=== PATIENT | female | born 1935 | race Caucasian/White ===

== ENCOUNTER → 2016-10-05 09:21 | Outpatient (CLI) | payer MEDICARE, OTHER ==
[2016-10-05 10:06] LABS: BASOPHILS 0.2 % (0.0-2.0); EOSINOPHILS 1.4 % (0-7); HEMATOCRIT 39.2 % (36.0-48.0); IMMATURE GRANULOCYTES 0.1 % (0-5); LYMPHOCYTES 16.7 % (15-50); MCHC 33.2 g/dL (31.0-37.0); MCV 90.3 fL (80.0-100.0); MEAN PLATELET VOLUME 10.5 fL (7.4-10.4); MONOCYTES 4.9 % (2-11); NEUTROPHILS 76.7 % (40-80); PLATELET COUNT 189 10x3/uL (130-400); RBC 4.34 10x6/uL (4.00-5.40); WBC 9.5 10x3/uL (4.8-10.8)
[2016-10-05 10:17] LABS: APPEARANCE CLEAR (CLEAR); BILIRUBIN NEGATIVE (NEGATIVE); COLOR YELLOW (YELLOW); GLUCOSE NEGATIVE (NEGATIVE); KETONE NEGATIVE (NEGATIVE); LEUKOCYTE ESTERASE 1+ (NEGATIVE); NITRITE NEGATIVE (NEGATIVE); PROTEIN TRACE mg/dL (NEGATIVE); SPECIFIC GRAVITY 1.005 (1.005-1.020); UROBILINOGEN NORMAL (NORMAL)
[2016-10-05 10:18] LABS: BACTERIA FEW /hpf (NONE SEEN); EPITHELIAL CELLS 0-5 /hpf (0-5); RED CELLS - URINE 0-5 /hpf (0-5); WHITE CELLS - URINE 0-5 /hpf (0-5)
[2016-10-05 10:47] LABS: ALBUMIN 3.9 g/dL (3.4-5.0); ANION GAP 10.5 mmol/L (8-16); BILIRUBIN - TOTAL 0.9 mg/dL (0.2-1.3); CALCIUM 9.7 mg/dL (8.5-10.1); CARBON DIOXIDE 28.2 mmol/L (21.0-32.0); LDL-HDL RATIO 0.9 ratio (1.5-3.5); POTASSIUM - SERUM 3.7 mmol/L (3.5-5.1); PROTEIN - SERUM 7.2 g/dL (6.4-8.2); THYROID STIMULATING HORMONE 3.7 uIU/mL (0.36-3.74)
== END | disposition home or self-care (01) ==
LOC: D.LAB 09:21
PROVIDERS: Family Medicine
DX: I48.2 Chronic atrial fibrillation (principal); E03.9 Hypothyroidism, unspecified; M85.80 Other specified disorders of bone density and structure, unspecified site; I10 Essential (primary) hypertension

== ENCOUNTER 2017-01-09 13:03 | Emergency (ER) | payer MEDICARE, OTHER | END 2017-01-09 15:30 | disposition home or self-care (01) | LOC: D.ER 13:03 | DX: S39.012A Strain of muscle, fascia and tendon of lower back, initial encounter (principal); W10.9XXA Fall (on) (from) unspecified stairs and steps, initial encounter; Y93.89 Activity, other specified; Y92.89 Other specified places as the place of occurrence of the external cause; I48.91 Unspecified atrial fibrillation; I25.10 Atherosclerotic heart disease of native coronary artery without angina pectoris; I10 Essential (primary) hypertension; E03.9 Hypothyroidism, unspecified; C44.90 Unspecified malignant neoplasm of skin, unspecified ==

== ENCOUNTER → 2017-01-18 13:36 | Outpatient (CLI) | payer MEDICARE, OTHER | END | disposition home or self-care (01) | LOC: D.MRI 13:36 | DX: M48.56XD Collapsed vertebra, not elsewhere classified, lumbar region, subsequent encounter for fracture with routine healing (principal) ==

== ENCOUNTER → 2017-10-16 09:43 | Outpatient (CLI) | payer MEDICARE, OTHER ==
[2017-10-16 10:16] LABS: BASOPHILS 0.4 % (0-2); EOSINOPHILS 2.5 % (0-7); HEMATOCRIT 31.3 % (36.0-48.0); HEMOGLOBIN 10.1 g/dL (12-16); IMMATURE GRANULOCYTES 0.3 % (0-5); LYMPHOCYTES 11.5 % (15-50); MCH 30.2 pg (26.0-34.0); MCHC 32.3 g/dL (31.0-37.0); MCV 93.7 fL (80.0-100.0); MEAN PLATELET VOLUME 9.4 fL (7.4-10.4); MONOCYTES 6.8 % (2-11); NEUTROPHILS 78.5 % (40-80); RBC 3.34 10x6/uL (4.00-5.40); RDW 15.9 % (11.5-14.5); WBC 10.1 10x3/uL (4.8-10.8)
[2017-10-16 10:19] LABS: PLATELET COUNT 300 10x3/uL (130-400)
[2017-10-16 10:42] LABS: ALBUMIN 3.2 g/dL (3.4-5.0); BILIRUBIN - TOTAL 0.65 mg/dL (0.2-1.3); CALCIUM 9.1 mg/dL (8.5-10.1); CARBON DIOXIDE 26.5 mmol/L (21.0-32.0); CHOL - HDL RATIO 1.7 ratio (2.3-4.1); CREATININE - SERUM 0.9 mg/dL (0.6-1.3); LDL-HDL RATIO 0.6 ratio (1.5-3.5); POTASSIUM - SERUM 3.5 mmol/L (3.5-5.1); PROTEIN - SERUM 6.9 g/dL (6.4-8.2); THYROID STIMULATING HORMONE 5.82 uIU/mL (0.36-3.74)
== END | disposition home or self-care (01) ==
LOC: D.LAB 08:00
PROVIDERS: Family Medicine
DX: I10 Essential (primary) hypertension (principal); E03.9 Hypothyroidism, unspecified; I48.2 Chronic atrial fibrillation; M85.80 Other specified disorders of bone density and structure, unspecified site

== ENCOUNTER 2017-11-17 21:50 | Inpatient (IN) | payer MEDICARE, OTHER ==
[~2017-11-17] VITALS: Ht 152.4 cm; Wt 45.4 kg
--- NOTE | ~2017-11-17 | EC ---
PATIENT:ARINA HADLEY DATE OF SERVICE: 11/18/17 SEX: F MEDICAL RECORD: [id number] DATE OF : 39 LOCATION:[facility] AGE OF PATIENT: 82 ADMISSION DATE: 11/18/17 REFERRING PHYSICIAN: INTERPRETING PHYSICIAN: CHRISTY ADAM MD ECHOCARDIOGRAM REPORT ECHO CHARGES 4 ECHO COMPLETE DATE: CLINICAL DIAGNOSIS: ASSESS EF HX OF AFIB/HTN ECHOCARDIOGRAPHIC MEASUREMENTS (adult normal given) AC root (d.<3.7cm) 2.9 cm LV Septum d (<1.2 cm> 1.3 cm Valve Excursion 1.8 cm LV Septum (systole) 1.6 cm Left Atria (s.<4.0cm> 3.9 cm LVPW d(<1.2cm) 1.2 cm RV (d.<2.3cm) 3.9 cm LVPW (sytole) 1.5 cm LV diastole(<5.6CM) 4.1 cm MV E-F(>70mm/sec) cm LV systole 2.7 cm LVOT Diameter 1.3 cm MV exc.(>10mm) 1.6 cm Est.ejection fraction (50-75%) % DOPPLER: LVIT cm/sec A 86.0 cm/sec E 107 cm/sec LA cm/sec RVSP 51 mmHg LVOT 93 cm/sec AOP1/2T 947 m/s Asc. Ao 163 cm/sec RVOT 86 cm/sec RA cm/sec PA 126 cm/sec AV Gradient Peak 10.61mmHg AV Mean 5.74 mmHg AV Area 1.7 cm MV Gradient Peak 6.99 mmHg MV Mean 1.72 mmHg MV Area cm COMMENTS: Vfx Artist: Rita MCDOWELL Transmission Supervisor: 1 Dr. Adam TAPE# PACS Pericardial Effusion N DATE OF SERVICE: 11/18/2017 FINDINGS: 1. Left ventricular chamber size is within normal limits. Left ventricular systolic function is normal. Overall ejection fraction estimated at 55%. 2. Left atrium is upper limits of normal at 3.9 cm. Right atrium and right ventricular chamber sizes are mildly dilated. 3. Valvular structures have normal structure and motion. 4. Doppler interrogation reveals mild aortic insufficiency, mild mitral regurgitation, severe tricuspid regurgitation. No other valvular insufficiency ECHOCARDIOGRAM REPORT [id number] ARINA HADLEY or stenosis; however, pulmonary systolic pressure is elevated, estimated at 52 mmHg. 5. No evidence of pericardial effusion or left ventricular thrombus. TRANSINT:[id number] Voice Confirmation ID: [id number] DOCUMENT ID: [id number] 11/23/2017 Edited to correct date of service, dmm. CHRISTY ADAM MD at 1140 CC: [id number] DICTATION DATE: 11/19/17 1217 EVIDENCE TECHNICIAN: 11/19/17 1656 DIS IN 11/22/17 [id number] [place] [address]
[2017-11-17 23:41] LABS: BASOPHILS 0.3 % (0-2); EOSINOPHILS 1.2 % (0-7); HEMATOCRIT 28.7 % (36.0-48.0); HEMOGLOBIN 9.6 g/dL (12-16); IMMATURE GRANULOCYTES 0.2 % (0-5); LYMPHOCYTES 12.2 % (15-50); MCH 29.5 pg (26.0-34.0); MCHC 33.4 g/dL (31.0-37.0); MCV 88.3 fL (80.0-100.0); MONOCYTES 7.9 % (2-11); NEUTROPHILS 78.2 % (40-80); RBC 3.25 10x6/uL (4.00-5.40); RDW 13.4 % (11.5-14.5)
[2017-11-17 23:54] LABS: PLATELET COUNT 423 10x3/uL (130-400)
[2017-11-18 00:06] LABS: ALBUMIN 2.5 g/dL (3.4-5.0); ALKALINE PHOSPHATASE 163 U/L (46-116); ALT (SGPT) 48 U/L (10-68); BILIRUBIN - TOTAL 0.36 mg/dL (0.2-1.3); CALC OSMOLALITY 264 mosm/kg (275-300); CALCIUM 9.3 mg/dL (8.5-10.1); CHLORIDE - SERUM 93 mmol/L (98-107); GLUCOSE 104 mg/dL (74-106); POTASSIUM - SERUM 3.6 mmol/L (3.5-5.1); PROTEIN - SERUM 6.7 g/dL (6.4-8.2); SODIUM 130 mmol/L (136-145); UREA NITROGEN 25 mg/dL (7-18); eGFR NON AFRICAN AMERICAN 56 mL/min (90-120)
[2017-11-18 00:20] LABS: CHOL - HDL RATIO 2.2 ratio (2.3-4.1); CHOLESTEROL, TOTAL 141 mg/dL (0-200); CKMB 0.7 U/L (0.0-3.6); CREATINE KINASE 32 UL (21-215); HDL CHOLESTEROL 63 mg/dL (32-96); LDL CHOLESTEROL 69 mg/dL (0-100); LDL-HDL RATIO 1.1 ratio (1.5-3.5); TRIGLYCERIDE 45 mg/dL (30-200); TROPONIN-I < 0.017 ng/mL (0.000-0.060)
[2017-11-18 12:41] LABS: CKMB 0.6 U/L (0.0-3.6); CREATINE KINASE 33 UL (21-215); TROPONIN-I < 0.017 ng/mL (0.000-0.060)
[2017-11-18] MEDS ORDERED: LISINOPRIL-HCTZ1 T13 PO (16:25)
[2017-11-18] MEDS ORDERED: FUROSEMIDE20 MG PO (16:25)
[2017-11-18] MEDS ORDERED: LEVOTHYROXINE50 MCG PO (16:26)
[2017-11-18] MEDS ORDERED: METOPROLOL TART25 MG PO (16:27)
[2017-11-18] MEDS ORDERED: CLARITIN 10 MG10 MG PO (16:28)
[2017-11-18] MEDS ORDERED: TOPROL XL25 MG PO (17:00)
[2017-11-18] MEDS ORDERED: ZIPSOR25 MG (17:01)
[2017-11-18] MEDS ORDERED: BAYER CHEWABLE81 MG PO (17:02)
[2017-11-18] MEDS ORDERED: DICLOFENAC SODI50 MG PO (17:02)
[2017-11-18] MEDS ORDERED: MAGNESIUM OXID250 MG PO (17:03)
[2017-11-18] MEDS ORDERED: OMEGA-3100 MG PO (17:03)
[2017-11-18] MEDS ORDERED: VITAMIN D3400 UNI1 PO (17:04)
[2017-11-18 17:38] VITALS: BP 163/67; BMI 19.5
[2017-11-18 18:13] LABS: CKMB 0.7 U/L (0.0-3.6); CREATINE KINASE 33 UL (21-215); TROPONIN-I < 0.017 ng/mL (0.000-0.060)
[2017-11-18 22:24] VITALS: BP 170/72
[2017-11-18 23:55] LABS: CKMB 0.4 U/L (0.0-3.6); CREATINE KINASE 35 UL (21-215); TROPONIN-I < 0.017 ng/mL (0.000-0.060)
[2017-11-19 02:24] VITALS: BP 178/78
[2017-11-19 05:25] VITALS: BP 146/53
[2017-11-19 06:01] LABS: BASOPHILS 0.2 % (0-2); EOSINOPHILS 0.9 % (0-7); HEMATOCRIT 29.7 % (36.0-48.0); HEMOGLOBIN 9.7 g/dL (12-16); IMMATURE GRANULOCYTES 0.4 % (0-5); LYMPHOCYTES 10.6 % (15-50); MCH 28.8 pg (26.0-34.0); MCHC 32.7 g/dL (31.0-37.0); MCV 88.1 fL (80.0-100.0); MONOCYTES 8.9 % (2-11); PLATELET COUNT 441 10x3/uL (130-400); RBC 3.37 10x6/uL (4.00-5.40); RDW 13.3 % (11.5-14.5)
[2017-11-19 06:13] LABS: ANION GAP 13.6 mmol/L (8-16); CALCIUM 8.8 mg/dL (8.5-10.1); CARBON DIOXIDE 22.8 mmol/L (21.0-32.0); CREATININE - SERUM 0.9 mg/dL (0.6-1.3); POTASSIUM - SERUM 3.4 mmol/L (3.5-5.1)
[2017-11-19 08:00] VITALS: BP 157/54
[2017-11-19 11:30] VITALS: BP 141/59
[2017-11-19 15:30] VITALS: BP 128/66
[2017-11-19 19:08] LABS: EOS BF 1 %; MACROPHAGES BF 14 %; MESOTHELIALS BF 16 %; NEUT - BF 52 %
[2017-11-19 21:51] VITALS: BP 126/72
[2017-11-20 01:33] VITALS: BP 100/58
[2017-11-20 05:05] VITALS: BP 120/72
[2017-11-20 06:02] LABS: BASOPHILS 0.2 % (0-2); EOSINOPHILS 1.9 % (0-7); HEMATOCRIT 30.1 % (36.0-48.0); HEMOGLOBIN 9.8 g/dL (12-16); IMMATURE GRANULOCYTES 0.2 % (0-5); LYMPHOCYTES 14.1 % (15-50); MCH 28.8 pg (26.0-34.0); MCHC 32.6 g/dL (31.0-37.0); MCV 88.5 fL (80.0-100.0); MEAN PLATELET VOLUME 8.8 fL (7.4-10.4); NEUTROPHILS 75.6 % (40-80); PLATELET COUNT 381 10x3/uL (130-400); RDW 13.3 % (11.5-14.5); WBC 10.2 10x3/uL (4.8-10.8)
[2017-11-20 06:11] LABS: ANION GAP 14.2 mmol/L (8-16); CARBON DIOXIDE 22.4 mmol/L (21.0-32.0); CREATININE - SERUM 0.9 mg/dL (0.6-1.3); POTASSIUM - SERUM 3.6 mmol/L (3.5-5.1)
[2017-11-20 09:38] VITALS: BP 153/68
[2017-11-20 15:04] VITALS: BP 148/89
[2017-11-20 15:39] VITALS: Ht 152.4 cm; Wt 45.4 kg
[2017-11-20 18:59] VITALS: BP 142/64
[2017-11-20 23:59] VITALS: BP 149/63
[2017-11-21 04:17] VITALS: BP 134/68
[2017-11-21 06:56] LABS: BASOPHILS 0.2 % (0-2); EOSINOPHILS 1.2 % (0-7); HEMATOCRIT 30.5 % (36.0-48.0); HEMOGLOBIN 9.9 g/dL (12-16); IMMATURE GRANULOCYTES 0.3 % (0-5); LYMPHOCYTES 12.2 % (15-50); MCH 28.7 pg (26.0-34.0); MCHC 32.5 g/dL (31.0-37.0); MCV 88.4 fL (80.0-100.0); MONOCYTES 10.5 % (2-11); NEUTROPHILS 75.6 % (40-80); PLATELET COUNT 395 10x3/uL (130-400); RBC 3.45 10x6/uL (4.00-5.40); RDW 13.2 % (11.5-14.5)
[2017-11-21 07:03] LABS: WBC 12.8 10x3/uL (4.8-10.8)
[2017-11-21 07:04] LABS: CALC OSMOLALITY 264 mosm/kg (275-300); CALCIUM 8.9 mg/dL (8.5-10.1); CARBON DIOXIDE 22.8 mmol/L (21.0-32.0); CHLORIDE - SERUM 100 mmol/L (98-107); CREATININE - SERUM 0.7 mg/dL (0.6-1.3); GLUCOSE 101 mg/dL (74-106); POTASSIUM - SERUM 3.3 mmol/L (3.5-5.1); SODIUM 132 mmol/L (136-145); UREA NITROGEN 12 mg/dL (7-18); eGFR NON AFRICAN AMERICAN 85 mL/min (90-120)
[2017-11-21 08:40] VITALS: BP 162/74
[2017-11-21 13:03] VITALS: BP 159/65
[2017-11-21 16:59] VITALS: BP 137/70
[2017-11-22 00:23] VITALS: BP 140/69
[2017-11-22 04:40] VITALS: BP 147/69
[2017-11-22 07:30] LABS: CALC OSMOLALITY 265 mosm/kg (275-300); CALCIUM 8.5 mg/dL (8.5-10.1); CARBON DIOXIDE 22.4 mmol/L (21.0-32.0); CHLORIDE - SERUM 101 mmol/L (98-107); CREATININE - SERUM 0.7 mg/dL (0.6-1.3); GLUCOSE 95 mg/dL (74-106); SODIUM 133 mmol/L (136-145); UREA NITROGEN 13 mg/dL (7-18); eGFR NON AFRICAN AMERICAN 85 mL/min (90-120)
[2017-11-22 07:34] LABS: POTASSIUM - SERUM 3.9 mmol/L (3.5-5.1)
[2017-11-22 07:59] LABS: BASOPHILS 0.2 % (0-2); EOSINOPHILS 3.3 % (0-7); HEMATOCRIT 30.4 % (36.0-48.0); IMMATURE GRANULOCYTES 0.2 % (0-5); LYMPHOCYTES 14.5 % (15-50); MCH 29.2 pg (26.0-34.0); MCHC 32.9 g/dL (31.0-37.0); MCV 88.6 fL (80.0-100.0); MONOCYTES 7.9 % (2-11); NEUTROPHILS 73.9 % (40-80); PLATELET COUNT 403 10x3/uL (130-400); RBC 3.43 10x6/uL (4.00-5.40); RDW 13.4 % (11.5-14.5); WBC 12.4 10x3/uL (4.8-10.8)
[2017-11-22 08:30] VITALS: BP 176/83
[2017-11-22 13:22] VITALS: BP 154/96
== END 2017-11-22 14:46 | disposition home or self-care (01) | DRG 291 ==
LOC: D.ER 21:50 → D.EDHOLD 11-18 01:06 → D.MS 11-18 01:06
PROVIDERS: Emergency Medicine; Internal Medicine Nephrology; Specialist
PROC: 0W993ZZ Drainage of Right Pleural Cavity, Percutaneous Approach (ICD-10-PCS; principal; 2017-11-19 17:30)
DX: I11.0 Hypertensive heart disease with heart failure (principal); J18.9 Pneumonia, unspecified organism; J91.8 Pleural effusion in other conditions classified elsewhere; J98.11 Atelectasis; I48.2 Chronic atrial fibrillation; I50.9 Heart failure, unspecified; E78.5 Hyperlipidemia, unspecified; R91.8 Other nonspecific abnormal finding of lung field; R29.6 Repeated falls

== ENCOUNTER 2018-01-24 05:48 | Inpatient (IN) | payer MEDICARE, OTHER ==
[~2018-01-24] VITALS: Ht 154.9 cm; Wt 45.3 kg
[~2018-01-24 05:48] MED LIST: BAYER CHEWABLE81 MG PO; CLARITIN 10 MG10 MG PO; DICLOFENAC SODI50 MG PO; FUROSEMIDE20 MG PO; LEVOTHYROXINE50 MCG PO; LISINOPRIL-HCTZ1 T13 PO; MAGNESIUM OXID250 MG PO; METOPROLOL TART25 MG PO; OMEGA-3100 MG PO; TOPROL XL25 MG PO; VITAMIN D3400 UNI1 PO; ZIPSOR25 MG
[2018-01-24 08:23] LABS: BASOPHILS 0.2 % (0-2); EOSINOPHILS 2.1 % (0-7); HEMATOCRIT 33.6 % (36.0-48.0); HEMOGLOBIN 11.1 g/dL (12-16); IMMATURE GRANULOCYTES 0.2 % (0-5); LYMPHOCYTES 18.3 % (15-50); MCV 84.8 fL (80.0-100.0); MEAN PLATELET VOLUME 9.7 fL (7.4-10.4); MONOCYTES 6.9 % (2-11); NEUTROPHILS 72.3 % (40-80); RBC 3.96 10x6/uL (4.00-5.40); RDW 17.7 % (11.5-14.5); WBC 10.2 10x3/uL (4.8-10.8)
[2018-01-24 08:33] LABS: PLATELET COUNT 264 10x3/uL (130-400)
[2018-01-24 08:42] LABS: ALBUMIN 3.2 g/dL (3.4-5.0); ALKALINE PHOSPHATASE 231 U/L (46-116); ALT (SGPT) 86 U/L (10-68); CALC OSMOLALITY 279 mosm/kg (275-300); CALCIUM 9.7 mg/dL (8.5-10.1); CARBON DIOXIDE 26.4 mmol/L (21.0-32.0); CHLORIDE - SERUM 102 mmol/L (98-107); GLUCOSE 91 mg/dL (74-106); POTASSIUM - SERUM 3.7 mmol/L (3.5-5.1); PROTEIN - SERUM 7.5 g/dL (6.4-8.2); SODIUM 138 mmol/L (136-145); UREA NITROGEN 24 mg/dL (7-18); eGFR NON AFRICAN AMERICAN 56 mL/min (90-120)
[2018-01-24 08:50] LABS: CREATINE KINASE 128 UL (21-215); LIPASE 184 U/L (73-393); MAGNESIUM - SERUM 2.4 mg/dL (1.8-2.4); PRO BNP 788 pg/mL (0-450)
[2018-01-24 08:51] LABS: TROPONIN-I < 0.017 ng/mL (0.000-0.060)
[2018-01-24 11:33] LABS: APPEARANCE CLEAR (CLEAR); BACTERIA NONE SEEN /hpf (NONE SEEN); BILIRUBIN NEGATIVE (NEGATIVE); COLOR YELLOW (YELLOW); EPITHELIAL CELLS RARE /hpf (0-5); GLUCOSE NEGATIVE (NEGATIVE); KETONE NEGATIVE (NEGATIVE); MUCUS <1+ /lpf (NONE SEEN); NITRITE NEGATIVE (NEGATIVE); PROTEIN NEGATIVE (NEGATIVE); SPECIFIC GRAVITY 1.005 (1.005-1.020); UROBILINOGEN NORMAL (NORMAL); WHITE CELLS - URINE RARE /hpf (0-5)
[2018-01-24 16:02] VITALS: BP 142/57; BMI 19.8
[2018-01-24 16:18] VITALS: BP 142/57
[2018-01-24] MEDS ORDERED: DICLOFENAC SODI50 MG PO (16:24)
[2018-01-24] MEDS ORDERED: ACETAMINOPHEN325 MG PO (16:25)
[2018-01-24 21:22] VITALS: BP 152/70
[2018-01-24 21:45] VITALS: BP 155/61; BP 160/58
[2018-01-25] VITALS: BP 123/43
[2018-01-25 05:22] LABS: BASOPHILS 0.3 % (0-2); EOSINOPHILS 2.2 % (0-7); IMMATURE GRANULOCYTES 0.1 % (0-5); LYMPHOCYTES 19.6 % (15-50); MCH 27.3 pg (26.0-34.0); MCHC 32.3 g/dL (31.0-37.0); MCV 84.7 fL (80.0-100.0); MONOCYTES 9.2 % (2-11); NEUTROPHILS 68.6 % (40-80); PLATELET COUNT 256 10x3/uL (130-400); RBC 3.66 10x6/uL (4.00-5.40); RDW 17.9 % (11.5-14.5); WBC 8.9 10x3/uL (4.8-10.8)
[2018-01-25 05:46] LABS: ANION GAP 12.4 mmol/L (8-16); CALCIUM 8.9 mg/dL (8.5-10.1); CARBON DIOXIDE 25.9 mmol/L (21.0-32.0); CREATININE - SERUM 0.9 mg/dL (0.6-1.3); POTASSIUM - SERUM 3.3 mmol/L (3.5-5.1)
[2018-01-25 06:11] VITALS: BP 138/61
[2018-01-25 10:06] VITALS: BP 139/62
[2018-01-25 11:22] VITALS: BP 120/51
[2018-01-25 12:32] VITALS: BMI 18.1
[2018-01-25 13:10] VITALS: Ht 154.9 cm; Wt 45.3 kg
[2018-01-25 14:57] LABS: % SATURATION 17 % (15-55); IRON 60 ug/dl (35-150); TOTAL IRON BIND CAPACITY 337 ug/dl (260-445); UNSAT IRON BIND CAPACITY 277 ug/dl (150-375)
[2018-01-25 15:29] VITALS: BP 123/46
[2018-01-25 20:32] VITALS: BP 133/59
[2018-01-26] VITALS (8 sets, daily range): BP systolic 90–162; BP diastolic 41–67
[2018-01-26 05:48] LABS: BASOPHILS 0.5 % (0-2); EOSINOPHILS 2.9 % (0-7); HEMATOCRIT 33.1 % (36.0-48.0); HEMOGLOBIN 10.7 g/dL (12-16); IMMATURE GRANULOCYTES 0.4 % (0-5); LYMPHOCYTES 24.3 % (15-50); MCH 27.8 pg (26.0-34.0); MCHC 32.3 g/dL (31.0-37.0); MEAN PLATELET VOLUME 9.9 fL (7.4-10.4); MONOCYTES 9.7 % (2-11); NEUTROPHILS 62.2 % (40-80); PLATELET COUNT 252 10x3/uL (130-400); RBC 3.85 10x6/uL (4.00-5.40); RDW 18.1 % (11.5-14.5)
[2018-01-26 06:02] LABS: ANION GAP 13.6 mmol/L (8-16); CALCIUM 8.9 mg/dL (8.5-10.1); CARBON DIOXIDE 25.3 mmol/L (21.0-32.0); CREATININE - SERUM 1.1 mg/dL (0.6-1.3)
[2018-01-26 06:06] LABS: POTASSIUM - SERUM 3.9 mmol/L (3.5-5.1)
== END 2018-01-26 16:30 | DRG 884 ==
LOC: D.ER 05:48 → D.M2 09:45 → D.EDHOLD 09:45 → D.M2 11:43
PROVIDERS: Family Medicine; Internal Medicine Nephrology
DX: R54 Age-related physical debility (principal); N17.9 Acute kidney failure, unspecified; S00.03XA Contusion of scalp, initial encounter; W06.XXXA Fall from bed, initial encounter; Z91.81 History of falling; D64.9 Anemia, unspecified; I48.2 Chronic atrial fibrillation; I10 Essential (primary) hypertension; E78.5 Hyperlipidemia, unspecified; I25.10 Atherosclerotic heart disease of native coronary artery without angina pectoris; E03.9 Hypothyroidism, unspecified; E87.6 Hypokalemia; M41.9 Scoliosis, unspecified; M85.80 Other specified disorders of bone density and structure, unspecified site; R55 Syncope and collapse; Z95.5 Presence of coronary angioplasty implant and graft; Z87.891 Personal history of nicotine dependence; I95.1 Orthostatic hypotension

== ENCOUNTER 2018-01-26 09:45 | Inpatient (IN) | payer MEDICARE, OTHER ==
[~2018-01-26] VITALS: Ht 154.9 cm; Wt 43.1 kg
--- NOTE | ~2018-01-26 | EC ---
PATIENT:ARINA HADLEY DATE OF SERVICE: 01/26/18 SEX: F MEDICAL RECORD: [id number] DATE OF : 39 [facility] AGE OF PATIENT: 82 ADMISSION DATE: 01/26/18 REFERRING PHYSICIAN: INTERPRETING PHYSICIAN: ZOFIA TREVINO MD ECHOCARDIOGRAM REPORT ECHO CHARGES Date: CLINICAL DIAGNOSIS: ECHOCARDIOGRAPHIC MEASUREMENTS (adult normal given) AC root (d.<3.7cm) cm LV Septum d (<1.2 cm> cm Valve Excursion cm LV Septum (systole) cm Left Atria (s.<4.0cm> cm LVPW d(<1.2cm) cm RV (d.<2.3cm) cm LVPW (sytole) cm LV diastole(<5.6CM) cm MV E-F(>70mm/sec) cm LV systole cm LVOT Diameter cm MV exc.(>10mm) cm Est.ejection fraction (50-75%) % DOPPLER: LVIT cm/sec A cm/sec E cm/sec LA cm/sec RVSP mmHg LVOT cm/sec AOP1/2T m/s Asc. Ao cm/sec RVOT cm/sec RA cm/sec PA cm/sec AV Gradient Peak mmHg AV Mean mmHg AV Area cm MV Gradient Peak mmHg MV Mean mmHg MV Area cm COMMENTS: Ingot Car Operator: Hotel Administrative Assistant: [email or web address]# Pericardial Effusion DATE OF SERVICE: PROCEDURE: Transthoracic echocardiogram. FINDINGS: 1. The left ventricle shows evidence of mild left ventricular hypertrophy. Inflow characteristics are normal. Ejection fraction is 60%. 2. The left atrium is normal. 3. The aortic valve is normal. 4. The mitral valve has mild mitral regurgitation. ECHOCARDIOGRAM REPORT [id number] ARINA HADLEY 5. Tricuspid valve has moderate tricuspid regurgitation, RVSP of 50 mmHg. 6. The right ventricle is mildly dilated. 7. The right atrium is normal. 8. The pulmonic valve is normal. CONCLUSIONS: The patient has evidence of mild left ventricular hypertrophy with normal LV systolic function, mild pulmonary hypertension and mild dilatation of the right ventricle. TRANSINT:[id number] Voice Confirmation ID: [id number] DOCUMENT ID: [id number] ZOFIA TREVINO MD at 1131 CC: [id number] DICTATION DATE: 01/27/18 1147 PRODUCTION OPERATIONS MANAGER: 01/27/18 1635 ADM IN [facility] [address] [facility], [id number]
--- NOTE | ~2018-01-26 | RHP ---
PATIENT: ARINA HADLEY MEDICAL RECORD: [id number] ACCOUNT: [id number] LOCATION:[id number] : 39 ADMISSION DATE: 01/26/18 REHABILITATION HISTORY AND PHYSICAL EXAMINATION POST ADMISSION PHYSICIAN EXAMINATION DATE OF ADMISSION: 01/26/2018. ADMITTING DIAGNOSIS: Debility secondary to recent falls. HISTORY OF PRESENT ILLNESS: The patient is admitted to inpatient rehab secondary debility from recent fall. She is an 82-year-old female patient with history of hypertension, hyperlipidemia, AFib, coronary artery disease, hypothyroidism, presented to the Emergency Room after she fell for the second time in 4 days. Apparently on 01/21/2018, the patient fell hitting her left side of her forehead and cheek and then fell again on 01/24/2018. She states that on Monday, she fell because she slipped out of bed and was trying to put on her slippers. The patient really does not remember what happened. She remembers waking up lying on the floor. She does state that on occasion, she gets dizzy when she stands up. The patient was admitted to the acute hospital on 01/24/2018 for further evaluation and treatment. She has had an echo, CT of her head and spine. She has had an MRI of her head during her acute hospital stay. She has got a left forehead scalp swelling and some left facial soft tissue swelling, has had some noted facial bruising, moderate chronic microvascular ischemic changes and diffuse cerebral volume loss was noted. Per x-ray, on 01/24/2018, does show evidence of scoliosis, osteopenia, and atherosclerotic vascular disease. She was monitored for orthostatic hypotension. She is on telemetry. She lives alone in her own apartment. She is moderately independent with use of a rolling walker for mobility and was independent with ADLs. She and her son, that is involved in her care, plan on her returning home. She is currently set at moderate assist with her ADLs and mod assist for mobility. She and her son want her to return back to her apartment at her prior level of functioning or better if possible. COMORBIDITIES: In this patient include hyperlipidemia, coronary artery disease, chronic AFib, anemia, acute kidney injury, hypokalemia, frequent falls, and hypertension. PAST MEDICAL HISTORY: Significant for compression fracture, thyroid problems, hypertension, atrial fib, hyperlipidemia, skin cancer, past tobacco use, history of constipation. PAST SURGICAL HISTORY: Includes hysterectomy and angioplasty. ALLERGIES: CARDIZEM. CURRENT MEDICATIONS: Include metoprolol 12.5 mg daily, Mag-Ox daily, Synthroid 50 mcg daily, furosemide 20 mg daily, vitamin D 400 units daily, Qiana 60 mg b.i.d., polyethylene glycol 17 grams in 8 ounces of water daily, omega-3 one cap b.i.d., aspirin chewable 81 mg b.i.d., and acetaminophen 650 mg q.4 hours p.r.n. HABITS: No alcohol or tobacco use. FAMILY HISTORY: Noncontributory. HISTORY AND PHYSICAL [id number] ARINA HADLEY SOCIAL HISTORY: The patient hopes to return back home and get back to her prior level of functioning. REVIEW OF SYSTEMS: GENERAL: Does complain of weakness and fatigue. HEENT: Denies cold, cough, or congestion. CARDIOVASCULAR: Denies any chest pain. PHYSICAL EXAMINATION: VITAL SIGNS: Stable, afebrile. GENERAL: A thin elderly female in no acute distress, alert upon exam. HEENT: Normocephalic and atraumatic. Mucosa moist. NECK: Supple. No lymphadenopathy. LUNGS: Clear at this time. HEART: Regular rate and rhythm. ABDOMEN: Benign. EXTREMITIES: No clubbing, cyanosis or edema. NEUROLOGIC: She is intact. ASSESSMENT: This is an 82-year-old female patient admitted to the rehab with a working diagnosis of debility secondary to frequent falls. The patient has potential to make improvement. We instituted the following multidisciplinary therapies including, but not limited to physical, occupational, respiratory, speech, nutritional services, prosthetics and orthotics. Given her complex medical condition and risk for more complications, rehabilitation services cannot be provided at a low level of care such as fci facility. PLAN: 1. Admit to [facility] rehab for intensive inpatient therapy to include the following disciplines: A. Physical therapy to improve gait, all transfer skills and bed mobility to a modified independent level. B. Occupation therapy to improve activities of daily living to a modified independent level. C. Case management to assist with discharge planning and placement options. D. Nutrition to assist with nutritional needs. E. Rehabilitation nursing to assist in monitoring the patient's underlying medical condition and to assist with any type of bowel or bladder management. 2. The patient's current medication and medical care will be continued. 3. The patient will be placed on standard fall precautions. 4. The patient's estimated length of stay is approximately 7-10 days. 5. Discuss the patient during care team staff meeting this week. TRANSINT:[id number] Voice Confirmation ID: [id number] DOCUMENT ID: [id number] ADDENDUM: I saw this patient for post-admission physical exam on 01/26/2018. Due to an unforeseen emergency, I was unable to document at that time. Medications were adjusted at that time and the PA was dictated at a later date on 01/29/2018. Dictation ID [id number] RENEA notes whether there has been none or any medical/functional change since admission: - No change since prescreen. HISTORY AND PHYSICAL [id number] ARINA HADLEY attests patient continues to be appropriate for IRF: - Continues to be appropriate. SAM DUDLEY MD at 1405 CC: [id number] DICTATION DATE: 01/29/18 0824 AGRICULTURAL ENGINEERING TECHNICIANS: 01/29/18 1157 DIS IN 02/05/18 [facility] [address] [place] [address]
[~2018-01-26 09:45] MED LIST changes: +ACETAMINOPHEN325 MG PO
[2018-01-26 18:10] VITALS: BP 97/51; BMI 17.9
[2018-01-26 19:00] VITALS: BP 110/46
[2018-01-27 06:36] LABS: BASOPHILS 0.4 % (0-2); EOSINOPHILS 3.8 % (0-7); HEMATOCRIT 31.2 % (36.0-48.0); HEMOGLOBIN 10.1 g/dL (12-16); IMMATURE GRANULOCYTES 0.1 % (0-5); LYMPHOCYTES 25.8 % (15-50); MCH 27.6 pg (26.0-34.0); MCHC 32.4 g/dL (31.0-37.0); MCV 85.2 fL (80.0-100.0); MEAN PLATELET VOLUME 9.6 fL (7.4-10.4); MONOCYTES 6.7 % (2-11); NEUTROPHILS 63.2 % (40-80); PLATELET COUNT 259 10x3/uL (130-400); RBC 3.66 10x6/uL (4.00-5.40); RDW 17.8 % (11.5-14.5); WBC 8.2 10x3/uL (4.8-10.8)
[2018-01-27 06:46] LABS: ANION GAP 11.1 mmol/L (8-16); CARBON DIOXIDE 25.8 mmol/L (21.0-32.0); POTASSIUM - SERUM 3.9 mmol/L (3.5-5.1)
[2018-01-27 07:00] VITALS: BP 124/61
[2018-01-27 10:49] VITALS: Ht 154.9 cm; Wt 43.1 kg
[2018-01-27 22:52] VITALS: BP 107/49
[2018-01-28 08:00] VITALS: BP 165/46
[2018-01-28 20:14] VITALS: BP 143/61
[2018-01-29 08:00] VITALS: BP 154/62
[2018-01-29 19:00] VITALS: BP 114/63
[2018-01-30 07:44] VITALS: BP 140/74
[2018-01-30 19:27] VITALS: BP 138/54
[2018-01-31 01:43] VITALS: BP 146/87
[2018-01-31 07:17] LABS: BASOPHILS 0.2 % (0-2); EOSINOPHILS 2.1 % (0-7); HEMATOCRIT 31.9 % (36.0-48.0); HEMOGLOBIN 10.3 g/dL (12-16); IMMATURE GRANULOCYTES 0.3 % (0-5); LYMPHOCYTES 20.4 % (15-50); MCH 27.8 pg (26.0-34.0); MCHC 32.3 g/dL (31.0-37.0); MEAN PLATELET VOLUME 9.9 fL (7.4-10.4); MONOCYTES 7.2 % (2-11); NEUTROPHILS 69.8 % (40-80); PLATELET COUNT 256 10x3/uL (130-400); RBC 3.71 10x6/uL (4.00-5.40); RDW 18.4 % (11.5-14.5); WBC 8.9 10x3/uL (4.8-10.8)
[2018-01-31 07:26] LABS: ANION GAP 10.9 mmol/L (8-16); CALCIUM 9.6 mg/dL (8.5-10.1); CREATININE - SERUM 0.9 mg/dL (0.6-1.3); POTASSIUM - SERUM 3.9 mmol/L (3.5-5.1)
[2018-01-31 07:38] VITALS: BP 135/55
[2018-01-31 19:00] VITALS: BP 120/46
[2018-02-01 07:52] VITALS: BP 131/55
[2018-02-01 19:00] VITALS: BP 116/71
[2018-02-02 08:19] VITALS: BP 92/56
[2018-02-02 19:00] VITALS: BP 128/53
[2018-02-03 08:00] VITALS: BP 118/47
[2018-02-03 20:49] VITALS: BP 144/43
[2018-02-04 08:00] VITALS: BP 129/59
[2018-02-04 19:30] VITALS: BP 113/63
[2018-02-05 06:33] LABS: BASOPHILS 0.2 % (0-2); EOSINOPHILS 2.9 % (0-7); HEMATOCRIT 31.2 % (36.0-48.0); IMMATURE GRANULOCYTES 0.1 % (0-5); LYMPHOCYTES 25.9 % (15-50); MCH 27.4 pg (26.0-34.0); MCHC 32.1 g/dL (31.0-37.0); MCV 85.5 fL (80.0-100.0); MEAN PLATELET VOLUME 9.8 fL (7.4-10.4); MONOCYTES 8.8 % (2-11); NEUTROPHILS 62.1 % (40-80); PLATELET COUNT 248 10x3/uL (130-400); RBC 3.65 10x6/uL (4.00-5.40); RDW 18.3 % (11.5-14.5); WBC 8.3 10x3/uL (4.8-10.8)
[2018-02-05 06:53] LABS: CALCIUM 9.4 mg/dL (8.5-10.1); CARBON DIOXIDE 29.8 mmol/L (21.0-32.0); POTASSIUM - SERUM 3.8 mmol/L (3.5-5.1)
[2018-02-05 08:00] VITALS: BP 109/39
[2018-02-05] MEDS ORDERED: FEXOFENADINE HC60 MG PO (12:26)
== END 2018-02-05 12:31 | disposition home or self-care (01) | DRG 948 ==
LOC: D.REHAB 09:45
PROVIDERS: Emergency Medicine
DX: R53.81 Other malaise (principal); N17.9 Acute kidney failure, unspecified; E78.5 Hyperlipidemia, unspecified; I25.10 Atherosclerotic heart disease of native coronary artery without angina pectoris; I48.2 Chronic atrial fibrillation; D64.9 Anemia, unspecified; E87.6 Hypokalemia; I10 Essential (primary) hypertension; Z91.81 History of falling; M41.9 Scoliosis, unspecified; M85.80 Other specified disorders of bone density and structure, unspecified site

== ENCOUNTER 2018-03-15 08:39 | Inpatient (IN) | payer MEDICARE, OTHER ==
[~2018-03-15] VITALS: Ht 154.9 cm; Wt 50.6 kg
[~2018-03-15 08:39] MED LIST changes: +FEXOFENADINE HC60 MG PO
[2018-03-15 09:03] VITALS: BP 161/71
[2018-03-15 09:20] LABS: BASOPHILS 0.2 % (0-2); EOSINOPHILS 1.1 % (0-7); HEMATOCRIT 33.4 % (36.0-48.0); HEMOGLOBIN 10.7 g/dL (12-16); IMMATURE GRANULOCYTES 0.3 % (0-5); LYMPHOCYTES 15.5 % (15-50); MCH 28.2 pg (26.0-34.0); MCV 87.9 fL (80.0-100.0); MEAN PLATELET VOLUME 9.7 fL (7.4-10.4); MONOCYTES 7.5 % (2-11); NEUTROPHILS 75.4 % (40-80); PLATELET COUNT 202 10x3/uL (130-400); RDW 15.4 % (11.5-14.5); WBC 9.4 10x3/uL (4.8-10.8)
[2018-03-15 09:36] LABS: ANION GAP 11.2 mmol/L (8-16); BILIRUBIN - TOTAL 0.8 mg/dL (0.2-1.3); CARBON DIOXIDE 24.4 mmol/L (21.0-32.0); CREATININE - SERUM 0.9 mg/dL (0.6-1.3); POTASSIUM - SERUM 3.6 mmol/L (3.5-5.1); PROTEIN - SERUM 6.9 g/dL (6.4-8.2)
[2018-03-15 15:54] VITALS: BP 155/64
[2018-03-15 18:10] VITALS: BP 155/64; Ht 154.9 cm; Wt 50.6 kg
[2018-03-15 21:29] VITALS: BP 147/63
[2018-03-15 23:53] VITALS: BP 144/43
[2018-03-16 03:24] VITALS: BP 158/85
[2018-03-16 05:29] LABS: BASOPHILS 0.3 % (0-2); EOSINOPHILS 1.4 % (0-7); HEMATOCRIT 33.6 % (36.0-48.0); HEMOGLOBIN 10.7 g/dL (12-16); IMMATURE GRANULOCYTES 0.1 % (0-5); LYMPHOCYTES 18.3 % (15-50); MCH 27.8 pg (26.0-34.0); MCHC 31.8 g/dL (31.0-37.0); MCV 87.3 fL (80.0-100.0); MEAN PLATELET VOLUME 10.1 fL (7.4-10.4); MONOCYTES 8.2 % (2-11); NEUTROPHILS 71.7 % (40-80); PLATELET COUNT 227 10x3/uL (130-400); RBC 3.85 10x6/uL (4.00-5.40); RDW 15.3 % (11.5-14.5); WBC 7.3 10x3/uL (4.8-10.8)
[2018-03-16 06:16] LABS: ANION GAP 12.9 mmol/L (8-16); BILIRUBIN - TOTAL 0.93 mg/dL (0.2-1.3); CALCIUM 8.9 mg/dL (8.5-10.1); CARBON DIOXIDE 25.6 mmol/L (21.0-32.0); CREATININE - SERUM 0.9 mg/dL (0.6-1.3); POTASSIUM - SERUM 3.5 mmol/L (3.5-5.1)
[2018-03-16 07:56] VITALS: BP 181/73
[2018-03-16 08:10] LABS: APPEARANCE SLT CLOUDY (CLEAR); BILIRUBIN NEGATIVE (NEGATIVE); COLOR YELLOW (YELLOW); GLUCOSE NEGATIVE (NEGATIVE); KETONE NEGATIVE (NEGATIVE); NITRITE NEGATIVE (NEGATIVE); PROTEIN TRACE mg/dL (NEGATIVE); UROBILINOGEN NORMAL (NORMAL)
[2018-03-16 08:14] LABS: AMORPHOUS SEDIMENT <1+ /lpf (NONE SEEN); BACTERIA MODERATE /hpf (NONE SEEN); MUCUS <1+ /lpf (NONE SEEN); RED CELLS - URINE 0-5 /hpf (0-5)
[2018-03-16 12:28] VITALS: BP 122/63
[2018-03-16 15:44] VITALS: BP 136/52
[2018-03-16 20:00] VITALS: BP 133/55
[2018-03-16 23:14] VITALS: BP 143/59
[2018-03-17 03:43] VITALS: BP 124/55; BP 152/57
[2018-03-17 05:41] LABS: BASOPHILS 0.1 % (0-2); EOSINOPHILS 1.5 % (0-7); HEMOGLOBIN 10.2 g/dL (12-16); IMMATURE GRANULOCYTES 0.2 % (0-5); LYMPHOCYTES 17.9 % (15-50); MCH 27.9 pg (26.0-34.0); MCHC 31.9 g/dL (31.0-37.0); MCV 87.4 fL (80.0-100.0); MEAN PLATELET VOLUME 9.7 fL (7.4-10.4); MONOCYTES 7.3 % (2-11); PLATELET COUNT 219 10x3/uL (130-400); RBC 3.66 10x6/uL (4.00-5.40); RDW 15.2 % (11.5-14.5)
[2018-03-17 05:50] LABS: WBC 10.4 10x3/uL (4.8-10.8)
[2018-03-17 06:27] LABS: ALBUMIN 2.8 g/dL (3.4-5.0); ANION GAP 9.9 mmol/L (8-16); BILIRUBIN - TOTAL 0.66 mg/dL (0.2-1.3); CALCIUM 8.9 mg/dL (8.5-10.1); CARBON DIOXIDE 24.9 mmol/L (21.0-32.0); CREATININE - SERUM 0.9 mg/dL (0.6-1.3); POTASSIUM - SERUM 3.8 mmol/L (3.5-5.1); PROTEIN - SERUM 6.6 g/dL (6.4-8.2)
[2018-03-17 08:13] VITALS: BP 160/68
[2018-03-17 12:33] VITALS: BP 126/56
[2018-03-17 19:36] VITALS: BP 164/57
[2018-03-17 23:26] VITALS: BP 137/56
[2018-03-18 04:00] VITALS: BP 167/61
[2018-03-18 05:49] LABS: BASOPHILS 0.1 % (0-2); EOSINOPHILS 3.1 % (0-7); HEMATOCRIT 32.8 % (36.0-48.0); HEMOGLOBIN 10.5 g/dL (12-16); IMMATURE GRANULOCYTES 0.1 % (0-5); LYMPHOCYTES 26.3 % (15-50); MCH 28.1 pg (26.0-34.0); MCV 87.7 fL (80.0-100.0); MEAN PLATELET VOLUME 9.8 fL (7.4-10.4); MONOCYTES 6.6 % (2-11); NEUTROPHILS 63.8 % (40-80); PLATELET COUNT 230 10x3/uL (130-400); RBC 3.74 10x6/uL (4.00-5.40); WBC 8.1 10x3/uL (4.8-10.8)
[2018-03-18 06:11] LABS: ALBUMIN 2.8 g/dL (3.4-5.0); ANION GAP 10.2 mmol/L (8-16); BILIRUBIN - TOTAL 1.01 mg/dL (0.2-1.3); CARBON DIOXIDE 28.3 mmol/L (21.0-32.0); CREATININE - SERUM 0.9 mg/dL (0.6-1.3); POTASSIUM - SERUM 3.5 mmol/L (3.5-5.1); PROTEIN - SERUM 6.7 g/dL (6.4-8.2)
[2018-03-18 08:05] VITALS: BP 173/62
[2018-03-18 12:09] VITALS: BP 141/58
[2018-03-18] MEDS ORDERED: FISH OIL 1,0001 CA1 PO (12:40)
[2018-03-18 16:02] VITALS: BP 137/50
[2018-03-18 19:47] VITALS: BP 123/56
[2018-03-18 23:37] VITALS: BP 125/51
[2018-03-19 03:39] VITALS: BP 107/53
[2018-03-19 05:10] LABS: BASOPHILS 0.1 % (0-2); EOSINOPHILS 2.9 % (0-7); HEMATOCRIT 33.2 % (36.0-48.0); HEMOGLOBIN 10.4 g/dL (12-16); IMMATURE GRANULOCYTES 0.1 % (0-5); LYMPHOCYTES 25.9 % (15-50); MCH 27.5 pg (26.0-34.0); MCHC 31.3 g/dL (31.0-37.0); MCV 87.8 fL (80.0-100.0); MEAN PLATELET VOLUME 10.2 fL (7.4-10.4); MONOCYTES 8.6 % (2-11); NEUTROPHILS 62.4 % (40-80); PLATELET COUNT 242 10x3/uL (130-400); RBC 3.78 10x6/uL (4.00-5.40); RDW 14.9 % (11.5-14.5)
[2018-03-19 05:39] LABS: ALBUMIN 2.9 g/dL (3.4-5.0); ANION GAP 10.3 mmol/L (8-16); BILIRUBIN - TOTAL 0.82 mg/dL (0.2-1.3); CALCIUM 9.1 mg/dL (8.5-10.1); CARBON DIOXIDE 28.2 mmol/L (21.0-32.0); POTASSIUM - SERUM 3.5 mmol/L (3.5-5.1); PROTEIN - SERUM 6.7 g/dL (6.4-8.2)
[2018-03-19 08:35] VITALS: BP 155/58
== END 2018-03-19 14:42 | DRG 552 ==
LOC: D.ER 08:39 → D.MS 12:27 → D.EDHOLD 12:27 → D.MS 13:26
PROVIDERS: Emergency Medicine; Family Medicine
DX: S32.019A Unspecified fracture of first lumbar vertebra, initial encounter for closed fracture (principal); N17.9 Acute kidney failure, unspecified; S32.029A Unspecified fracture of second lumbar vertebra, initial encounter for closed fracture; W19.XXXA Unspecified fall, initial encounter; I48.2 Chronic atrial fibrillation; I10 Essential (primary) hypertension; E78.5 Hyperlipidemia, unspecified; I25.10 Atherosclerotic heart disease of native coronary artery without angina pectoris; D64.9 Anemia, unspecified; E87.6 Hypokalemia

== ENCOUNTER 2018-05-02 20:32 | Emergency (ER) | payer MEDICARE, OTHER ==
[~2018-05-02] VITALS: Ht 154.9 cm; Wt 52.3 kg
[~2018-05-02 20:32] MED LIST changes: +FISH OIL 1,0001 CA1 PO
[2018-05-02 20:34] VITALS: Ht 154.9 cm; Wt 52.3 kg
[2018-05-02] MEDS ORDERED: TOPROL XL25 MG PO (20:35)
[2018-05-02 22:42] VITALS: BP 166/87
== END 2018-05-02 22:43 | disposition home or self-care (01) ==
LOC: D.ER 20:32
DX: S00.83XA Contusion of other part of head, initial encounter (principal); S00.531A Contusion of lip, initial encounter; W18.30XA Fall on same level, unspecified, initial encounter; Y93.89 Activity, other specified; Y92.129 Unspecified place in nursing home as the place of occurrence of the external cause; S69.91XA Unspecified injury of right wrist, hand and finger(s), initial encounter; M25.531 Pain in right wrist; E07.9 Disorder of thyroid, unspecified; I10 Essential (primary) hypertension; I50.9 Heart failure, unspecified; K21.9 Gastro-esophageal reflux disease without esophagitis; Z85.828 Personal history of other malignant neoplasm of skin

== ENCOUNTER 2018-05-18 08:54 | Inpatient (IN) | payer MEDICARE, OTHER ==
[~2018-05-18] VITALS: Ht 154.9 cm; Wt 52.2 kg
--- NOTE | ~2018-05-18 | OP ---
PATIENT NAME: ARINA HADLEY MEDICAL RECORD: [id number] :37 LOCATION:[facility] ADMISSION DATE:05/18/18 SURGEON: CHARLES CRYSTAL MD DATE OF OPERATION: 05/19/2018 PREOPERATIVE DIAGNOSIS: 100% displaced distal radius fracture with acute carpal tunnel syndrome. POSTOPERATIVE DIAGNOSIS: 100% displaced distal radius fracture with acute carpal tunnel syndrome. PROCEDURE: 1. Open reduction internal fixation of left distal radius fracture. 2. Carpal tunnel release. SURGEON: Charles Crystal MD ANESTHESIA: General. INTRAOPERATIVE COMPLICATIONS: None. SUMMARY OF PATHOLOGIC FINDINGS: The patient had 100% fracture with an apex volar displacement that reduced nicely under anesthesia and was amenable to internal fixation. OPERATIVE SUMMARY IN DETAIL: After obtaining the appropriate preoperative orthopedic surgery consent as well as anesthetic consultation, evaluation, and clearance, the patient was brought to the operating room and placed in supine position. After adequate general laryngeal mask administered, tourniquet was placed in the proximal aspect of the left upper extremity. Left upper extremity was prepped and draped in routine sterile fashion. Prior to tourniquet inflation, reduction maneuver was performed, it was checked on fluoroscopy on AP and lateral planes and it seemed very minimal to internal fixation. Reinaldo's volar approach was utilized from the carpal tunnel canal down the radius in a curvilinear fashion. The FCR was then identified and careful dissection was taken down across the transverse carpal ligament with full carpal tunnel release. Substantial amounts of hematoma was in the carpal canal and the nerve that was previously tented appeared to be reduced nicely. Dissection was then carried deep. Care was taken to retract the flexor tendon mass along with the median nerve. The distal radius was exposed, reduced and a Keeler VariAx volar plate was put into place. It was a narrow short volar plate. A provisional pinning under fluoroscopy was then followed by serial and sequential drill and fill with both combination of locking and nonlocking screws for internal fixation. Having completed this, AP and lateral radiographs were submitted for radiologist review. The wound was copiously irrigated and closed with 2-0 Vicryl followed by 4-0 Prolene in a running fashion. Sterile dressings were applied. Tourniquet was deflated. A volar splint was applied. The patient was awakened and taken to the recovery room in stable condition. All final needle and sponge counts were correct. TRANSINT:[id number] Voice Confirmation ID: [id number] DOCUMENT ID: [id number] OPERATIVE REPORT [id number] ARINA HADLEY MD, CHARLES SENA at 0932 CC: [id number] DICTATION DATE: 05/19/18 1353 VARIETY LATHE OPERATOR: 05/19/18 1527 ADM IN [id number] [place] [address]
[2018-05-18] MEDS ORDERED: FUROSEMIDE20 MG PO (08:58)
[2018-05-18] MEDS ORDERED: CLARITIN 10 MG10 MG PO (08:58)
[2018-05-18] MEDS ORDERED: FISH OIL 1,0001 CA1 PO (08:59)
[2018-05-18 10:29] LABS: BASOPHILS 0.1 % (0-2); EOSINOPHILS 0.8 % (0-7); HEMOGLOBIN 10.7 g/dL (12-16); IMMATURE GRANULOCYTES 0.1 % (0-5); LYMPHOCYTES 16.7 % (15-50); MCH 28.2 pg (26.0-34.0); MCHC 32.4 g/dL (31.0-37.0); MCV 87.1 fL (80.0-100.0); MEAN PLATELET VOLUME 10.3 fL (7.4-10.4); MONOCYTES 6.1 % (2-11); NEUTROPHILS 76.2 % (40-80); PLATELET COUNT 173 10x3/uL (130-400); RBC 3.79 10x6/uL (4.00-5.40); RDW 14.8 % (11.5-14.5); WBC 7.7 10x3/uL (4.8-10.8)
[2018-05-18 10:38] LABS: PROTIME 12.8 SECONDS (11.6-15.0)
[2018-05-18 10:52] LABS: ALBUMIN 3.1 g/dL (3.4-5.0); ANION GAP 11.6 mmol/L (8-16); BILIRUBIN - TOTAL 0.67 mg/dL (0.2-1.3); CALCIUM 9.1 mg/dL (8.5-10.1); CARBON DIOXIDE 27.1 mmol/L (21.0-32.0); POTASSIUM - SERUM 3.7 mmol/L (3.5-5.1); PROTEIN - SERUM 6.9 g/dL (6.4-8.2)
[2018-05-18 12:20] VITALS: BP 169/74; BMI 21.7
[2018-05-18 16:28] VITALS: BP 142/57
[2018-05-18 20:00] VITALS: BP 166/76
[2018-05-19] VITALS (7 sets, daily range): BP systolic 135–186; BP diastolic 53–88; Ht 154.9 cm; Wt 52.2 kg
[2018-05-19 06:49] LABS: BASOPHILS 0.3 % (0-2); EOSINOPHILS 1.1 % (0-7); HEMATOCRIT 31.1 % (36.0-48.0); HEMOGLOBIN 10.2 g/dL (12-16); IMMATURE GRANULOCYTES 0.2 % (0-5); LYMPHOCYTES 17.4 % (15-50); MCH 28.5 pg (26.0-34.0); MCHC 32.8 g/dL (31.0-37.0); MCV 86.9 fL (80.0-100.0); MEAN PLATELET VOLUME 10.6 fL (7.4-10.4); MONOCYTES 12.3 % (2-11); NEUTROPHILS 68.7 % (40-80); PLATELET COUNT 168 10x3/uL (130-400); RBC 3.58 10x6/uL (4.00-5.40); RDW 14.9 % (11.5-14.5); WBC 6.2 10x3/uL (4.8-10.8)
[2018-05-19 06:59] LABS: INR 1.09 (0.85-1.17); PROTIME 13.7 SECONDS (11.6-15.0)
[2018-05-19 07:06] LABS: ANION GAP 12.6 mmol/L (8-16); CALCIUM 8.6 mg/dL (8.5-10.1); CARBON DIOXIDE 23.8 mmol/L (21.0-32.0); CREATININE - SERUM 0.9 mg/dL (0.6-1.3); POTASSIUM - SERUM 3.4 mmol/L (3.5-5.1)
[2018-05-20] VITALS: BP 127/47
[2018-05-20 04:00] VITALS: BP 158/59
[2018-05-20 05:18] LABS: HEMATOCRIT 31.8 % (36.0-48.0); HEMOGLOBIN 10.5 g/dL (12-16)
[2018-05-20 08:28] VITALS: BP 136/53
[2018-05-20] MEDS ORDERED: ULTRAM50 MG PO (09:25)
[2018-05-20 11:31] VITALS: BP 140/46
[2018-05-20 16:29] VITALS: BP 144/49
== END 2018-05-20 19:07 | disposition home or self-care (01) | DRG 512 ==
LOC: D.ER 08:54 → D.MS 10:40
PROVIDERS: Family Medicine; Orthopaedic Surgery
PROC: 01N50ZZ Release Median Nerve, Open Approach (ICD-10-PCS; 2018-05-19)
PROC: 0PSJ04Z Reposition Left Radius with Internal Fixation Device, Open Approach (ICD-10-PCS; principal; 2018-05-19 13:45)
DX: S52.532A Colles' fracture of left radius, initial encounter for closed fracture (principal); K21.9 Gastro-esophageal reflux disease without esophagitis; G56.02 Carpal tunnel syndrome, left upper limb; I48.2 Chronic atrial fibrillation; W01.0XXA Fall on same level from slipping, tripping and stumbling without subsequent striking against object, initial encounter; E03.9 Hypothyroidism, unspecified; I10 Essential (primary) hypertension; E87.6 Hypokalemia; D64.9 Anemia, unspecified; Z87.891 Personal history of nicotine dependence

== ENCOUNTER 2018-09-27 08:36 | Inpatient (IN) | payer MEDICARE, OTHER ==
[~2018-09-27] VITALS: Ht 154.9 cm; Wt 55.5 kg
[~2018-09-27 08:36] MED LIST changes: +ULTRAM50 MG PO
[2018-09-27] MEDS ORDERED: SYNTHROID75 MCG PO (08:51)
[2018-09-27 10:47] LABS: BASOPHILS 0.1 % (0-2); EOSINOPHILS 0.1 % (0-7); HEMOGLOBIN 11.5 g/dL (12-16); IMMATURE GRANULOCYTES 0.1 % (0-5); LYMPHOCYTES 6.2 % (15-50); MCH 28.7 pg (26.0-34.0); MCHC 32.9 g/dL (31.0-37.0); MCV 87.3 fL (80.0-100.0); NEUTROPHILS 89.5 % (40-80); PLATELET COUNT 192 10x3/uL (130-400); RBC 4.01 10x6/uL (4.00-5.40); RDW 14.2 % (11.5-14.5); WBC 13.4 10x3/uL (4.8-10.8)
[2018-09-27 10:56] LABS: APTT 29.9 SECONDS (22.8-39.4); INR 1.05 (0.85-1.17); PROTIME 13.2 SECONDS (11.6-15.0)
[2018-09-27 11:02] LABS: ALBUMIN 3.2 g/dL (3.4-5.0); ANION GAP 12.5 mmol/L (8-16); BILIRUBIN - TOTAL 0.72 mg/dL (0.2-1.3); CARBON DIOXIDE 25.5 mmol/L (21.0-32.0); CREATININE - SERUM 0.9 mg/dL (0.6-1.3)
--- NOTE | 2018-09-27 13:35 | NUR ---
DR. CORONA AT BEDSIDE, PT STABLE CALLLIGHT WITHIN REACH DENIES NEEDS, WILL CONTINUE TO MONITOR.
[2018-09-27 15:57] VITALS: BP 173/94; BMI 22.9
[2018-09-27 20:00] VITALS: BP 137/72
[2018-09-28] VITALS: BP 117/60
[2018-09-28 05:17] LABS: BASOPHILS 0.1 % (0-2); EOSINOPHILS 0.3 % (0-7); HEMATOCRIT 31.4 % (36.0-48.0); HEMOGLOBIN 10.3 g/dL (12-16); IMMATURE GRANULOCYTES 0.2 % (0-5); LYMPHOCYTES 13.4 % (15-50); MCH 28.9 pg (26.0-34.0); MCHC 32.8 g/dL (31.0-37.0); MEAN PLATELET VOLUME 10.2 fL (7.4-10.4); MONOCYTES 11.1 % (2-11); NEUTROPHILS 74.9 % (40-80); PLATELET COUNT 192 10x3/uL (130-400); RBC 3.57 10x6/uL (4.00-5.40); RDW 14.5 % (11.5-14.5); WBC 11.5 10x3/uL (4.8-10.8)
--- NOTE | 2018-09-28 05:55 | NUR ---
PATIEN IS ALERT AND ORIENTED. PATIENT RESTING IN BED. NO C/O PAIN. RESPIRATIONS ARE EVEN AND UNLABORED. NO S/S DISTRESS. CALL LIGHT WITHIN REACH. WILL CPOC.
[2018-09-28 07:51] LABS: ALBUMIN 2.8 g/dL (3.4-5.0); ANION GAP 15.9 mmol/L (8-16); BILIRUBIN - TOTAL 0.54 mg/dL (0.2-1.3); CALCIUM 8.6 mg/dL (8.5-10.1); POTASSIUM - SERUM 3.9 mmol/L (3.5-5.1); PROTEIN - SERUM 6.4 g/dL (6.4-8.2)
[2018-09-28 08:39] VITALS: BP 157/51
--- NOTE | 2018-09-28 09:32 | NUR ---
ZEE NEEDS AT THIS TIME. IV PATENT. SON AT BS. CALL LIGHT IN REACH. WILL MONITOR.
[2018-09-28 10:37] VITALS: Ht 154.9 cm; Wt 55.5 kg
--- NOTE | 2018-09-28 10:50 | NUR ---
REPORT RECEIEVED. WILL CONTINUE WITH POC. PT CURRENTLY LYING SEMI FOWLERS. CALL LIGHT W/I REACH. PT IS AAO AND BEDFAST.RR EVEN AND UNLABORED ON 3L 02. L.AC PIV IS SALINE LOCKED. FAMILY AT BEDSIDE. PT DENIES ANY NEEDS AT THIS TIME. AMIODORONE INFSUSING @0.5. WILL CTM.
[2018-09-28 11:36] VITALS: BP 171/56
--- NOTE | 2018-09-28 13:15 | NUR ---
RECEIVED ORDERS FROM LETY KING TO START PO AMIODORONE 200MG BID FIRST DOSE NOW, CONTINUE AMIODORONE DRIP FOR TWO HOURS AFTER FIRST PO DOSE AND THEN DC. WILL CTM.
--- NOTE | 2018-09-28 14:56 | NUR ---
OR CALLED AND STATED THAT THE SURGERY WOULD BE POSTPONED UNTIL TOMORROW AT 0900 AND TO CHANGE DIET ORDER SO THAT THE PT MAY EAT DINNER AND MAKE NPO AFTER MIDNIGHT TONIGHT. OR STATED THE SURGERY WOULD BE @0900 IN THE AM. WILL CTM.
--- NOTE | 2018-09-28 15:14 | NUR ---
AMIODORONE DRIP STOPPED. NS INFUSING @50ML/HR VIA R.FOR PIV. PT DENIES ANY NEEDS. WILL CTM.
[2018-09-28 15:50] VITALS: BP 171/67
--- NOTE | 2018-09-28 18:38 | NUR ---
PT LYING SEMI FOWLERS. CALL LIGHT W/I REACH. RR EVEN AND UNLABORED ON 3L 02. PT IS NPO AFTER MIDNIGHT. NS INFUSING @50ML/HR VIA R.FOR PIV. PT IS AAO AND BEDFAST. PT DENIES ANY NEEDS. WILL PASS REPORT AND CONTINUE WITH POC.
--- NOTE | 2018-09-28 19:47 | NUR ---
REPORT RECEIVED. EVENING ROUNDS COMPLETED. PT SITTING UP IN BED WITH EYES OPEN, RR EVEN AND UNLABORED. OXYGEN AT 3 LITERS BY NASAL CANNULA. BED IN LOW POSITION. SIDE RAILS UP X2. INTRODUCED SELF TO PT. PT DENIES FURTHER NEEDS, NO S/S OF DISTRESS NOTED. CALL LIGHT IN REACH. WILL CTM.
[2018-09-28 20:06] VITALS: BP 147/78
--- NOTE | 2018-09-28 22:37 | NUR ---
EVENING ROUNDS COMPLETED. MEDICATIONS ADMINISTERED WITHOUT ISSUE. PT LYING IN BED WITH EYES OPEN, RR EVEN AND UNLABORED. PT REQUESTED TO HAVE FEMALE ASSIST HER IN CHANGING BEDDING, STATED SHE WOULD BE MORE COMFORTABLE IF IT WERE A FEMALE. I STATED I WOULD RESPECT HER WISHES AND WAS WILLING TO HELP IN ANY OTHER WAY IF NEEDED. PT STATES UNDERSTANDING, BUSINESS LIBRARIAN ASSISTED HER WITH EPISODE OF BLADDER INCONTINENCE. PT DENIES FURTHER NEEDS AT THIS TIME. CALL LIGHT IN REACH, WILL CTM.
--- NOTE | 2018-09-28 23:10 | NUR ---
PT RESTING WITH EYES CLOSED. RESP EVEN AND REGULAR. SR UP X2, CALL LIGHT WITHIN REACH.
[2018-09-29] VITALS (18 sets, daily range): BP systolic 109–153; BP diastolic 40–80
--- NOTE | 2018-09-29 03:00 | NUR ---
PT LYING IN BED WITH EYES OPEN, RR EVEN AND UNLABORED. OXYGEN AT 3 LITERS BY NASAL CANNULA. BED IN LOW POSITION. LACTATED RINGERS INFUSING ORDERED THROUGH LEFT WRIST PIV. NO S/S OF DISTRESS NOTED. PT DENIES FURTHER NEEDS. CALL LIGHT IN REACH. WILL CTM.
[2018-09-29 06:38] LABS: BASOPHILS 0.1 % (0-2); EOSINOPHILS 0.9 % (0-7); HEMATOCRIT 30.1 % (36.0-48.0); HEMOGLOBIN 9.7 g/dL (12-16); IMMATURE GRANULOCYTES 0.1 % (0-5); LYMPHOCYTES 13.8 % (15-50); MCH 28.3 pg (26.0-34.0); MCHC 32.2 g/dL (31.0-37.0); MCV 87.8 fL (80.0-100.0); MEAN PLATELET VOLUME 10.7 fL (7.4-10.4); MONOCYTES 9.8 % (2-11); NEUTROPHILS 75.3 % (40-80); PLATELET COUNT 180 10x3/uL (130-400); RBC 3.43 10x6/uL (4.00-5.40); RDW 14.4 % (11.5-14.5); WBC 11.2 10x3/uL (4.8-10.8)
[2018-09-29 07:11] LABS: ALBUMIN 2.6 g/dL (3.4-5.0); ANION GAP 13.4 mmol/L (8-16); BILIRUBIN - TOTAL 1.24 mg/dL (0.2-1.3); CALCIUM 8.3 mg/dL (8.5-10.1); CARBON DIOXIDE 25.1 mmol/L (21.0-32.0); CREATININE - SERUM 0.9 mg/dL (0.6-1.3); MAGNESIUM - SERUM 1.9 mg/dL (1.8-2.4); POTASSIUM - SERUM 3.5 mmol/L (3.5-5.1); PROTEIN - SERUM 6.1 g/dL (6.4-8.2)
--- NOTE | 2018-09-29 07:30 | NUR ---
ASSESSMENT COMPLETED. AWAKE AND ALERT. TELEMERTY SHOWS SR 75.RIGHT SHOULDER BRUISED, IV TO LEFT FA. 02 AT 3L/M PER NC. PRE OPTED FOR SURGERY.
--- NOTE | 2018-09-29 08:30 | NUR ---
RESTING QUIETLY NAD NOTED MONITOR SHOWS SR RATE 73
--- NOTE | 2018-09-29 13:40 | NUR ---
PT TRANSFERED TO [facility].
--- NOTE | 2018-09-29 15:02 | NUR ---
I CALLED DR. PAGE, HE SAID TO CONTINUE CORDORONE 200 MG PO BID.
--- NOTE | 2018-09-29 15:24 | NUR ---
1440-RECIEVED VIA BED FROM RECOVERY RM-R SHOULDER DRG IN PLACE-CMS AND WARMTH GOOD TO FINGER TIPS -R ARM SECURED IN SLING-PT ALERT-NOT ABLE TO DISCERN ORIENTATION-SON AT BEDSIDE-ICE CHIPS GIVEN-HOB ELELVATED-SR 60 ON OAWUIMP-KNMN-351/48 72-100% -PHARMACY CORRECTED IN RECONCILE MED PRIMIERE-PT A RESIDENT OF [facility] 1500-DR CRYSTAL CALLED UNIT FOR UPDATE-SAME GIVEN-DIRECTION TO NOTIFY STOCKBR[employer]ING DEALER FORGESMITH OF OCCURENCE OF [facility] IN OR AND TREATMENT DONE-AND FOR FURTHER CARDIAC ORDERS 1515-DR PAGE RETURNED CALL-TO CONTINUE CORDARONE PO BID ORDERED-CURENTLY SR ON MONITOR
--- NOTE | 2018-09-29 23:14 | NUR ---
1900 REPORT RECIEVED, SHIFT ASSESSMENT COMPLETE, PLEASE SEE FLOW SHEETS FOR DETAILS. PATIENT WAKES TO VOICE, AM NURSE IN ROOM TO ASSIST WITH BEDPAN PLACEMENT, LINEN CHANGE, CLEAN UP, AND REED PLACEMENT. BREIF WAS REMOVED, THIS WAS SATURATED WITH URINE. BEDPAN PLACED, VOIDED 400 ML. LINEN CHANGE PROVIDED - TOLERATED WELL - PERINEAL CLEANSING PROVIDED. REED PLACED BY THIS NURSE USING STERILE TECHNIQUE, STAT LOCK PLACED. POSITIONED FOR COMFORT. DENIES ANY OTHER NEEDS. INSTUCTED FOR SERVICE DESK ANALYST USE. PATIENT USED THIS. ICE ON. HEMODYNAMICALLY STABLE. BED LOW AND LOCKED, CALL LIGHT IN REACH. WILL CPOC. 2040 ICE OFF. 2100 PM MEDS GIVEN AND TOLERATED WELL. HEMODYNAMICALLY STABLE, CALL LIGHT IN REACH. WILL CPOC. 2240 ICE ON. 2300 REASSESSMENT COMPLETE, PLEASE SEE FLOW SHEETS FOR DETAILS. NO ACUTE CHANGES FROM PREVIOUS ASSESSMENT TO NOTE. DENIES PAIN/NEEDS. HEMODYNAMICALLY STABLED. CALL LIGHT IN REACH. POSITIONED FOR COMFORT. WILL CPOC.
[2018-09-30] VITALS (14 sets, daily range): BP systolic 117–161; BP diastolic 45–90
--- NOTE | 2018-09-30 03:00 | NUR ---
REASSESSMENT COMPLETE, PLEASE SEE FLOW SHEETS FOR DETAILS. NO ACUTE CHANGES FROM PREVIOUS ASSESSMENT TO NOTE. DENIES PAIN/NEEDS. ASSISTED WITH REPOSITIONING. HEMODYNAMICALLY STABLE ATT. BED LOW AND LOCKED, CALL LIGHT AND STAFF READINESS OFFICER BUTTON IN REACH. WILL CPOC.
--- NOTE | 2018-09-30 06:23 | NUR ---
0500 SLEEPING. HEMODYNAMICALLY STABLE. BED LOW AND LOCKED, CALL LIGHT IN REACH. WILL CPOC.
[2018-09-30 06:28] LABS: BASOPHILS 0.2 % (0-2); EOSINOPHILS 2.3 % (0-7); HEMATOCRIT 28.4 % (36.0-48.0); HEMOGLOBIN 8.9 g/dL (12-16); IMMATURE GRANULOCYTES 0.2 % (0-5); LYMPHOCYTES 6.7 % (15-50); MCH 27.9 pg (26.0-34.0); MCHC 31.3 g/dL (31.0-37.0); MEAN PLATELET VOLUME 10.8 fL (7.4-10.4); MONOCYTES 9.8 % (2-11); NEUTROPHILS 80.8 % (40-80); PLATELET COUNT 170 10x3/uL (130-400); RBC 3.19 10x6/uL (4.00-5.40); WBC 12.8 10x3/uL (4.8-10.8)
[2018-09-30 06:44] LABS: ALBUMIN 2.4 g/dL (3.4-5.0); ANION GAP 15.6 mmol/L (8-16); BILIRUBIN - TOTAL 1.36 mg/dL (0.2-1.3); CALCIUM 8.2 mg/dL (8.5-10.1); CARBON DIOXIDE 21.4 mmol/L (21.0-32.0); CREATININE - SERUM 0.9 mg/dL (0.6-1.3); MAGNESIUM - SERUM 1.8 mg/dL (1.8-2.4); PROTEIN - SERUM 5.8 g/dL (6.4-8.2)
--- NOTE | 2018-09-30 14:53 | NUR ---
0715-RECIEVED AWAKE AND DISORIENTED TO SITUATION-REORIENTED -R ARM SLING IN [id number]-OMX AND W GOOD -ROM TO R ELBOW DONE-ICE ON 1000-ICE OFF-CMS AND W R HAND GOOD 1200-DR CRYSTAL PRESENT REVIEWED IMMOBILZER-ELBOW ROM-CMS L-PESXSYFR-PPS ON 1330-COMPLETE BATH AND HAIR WASH DONE 1430-UP TO WHEELCHAIR WITH DIFFICULTY-DONE BY PT
--- NOTE | 2018-09-30 15:16 | NUR ---
RECIEVED PT FROM CVICU. PT RESTING IN BED. BRACE TO R ARM ON. ELBOW ROTATION PERFORMED. NO S/S OF ACUTE DISTRESS. CL IN PLACE.
[2018-10-01] VITALS: BP 158/60
[2018-10-01 03:00] VITALS: BP 145/82
--- NOTE | 2018-10-01 05:00 | NUR ---
CALLED DR PAGE ABOUT HEART RATE 130'S. GAVE METOPROLOL 5 MG IV PUSH ONE TIME DOSE.
[2018-10-01 06:26] LABS: BASOPHILS 0.1 % (0-2); HEMATOCRIT 24.7 % (36.0-48.0); HEMOGLOBIN 8.1 g/dL (12-16); IMMATURE GRANULOCYTES 0.3 % (0-5); LYMPHOCYTES 10.6 % (15-50); MCH 28.6 pg (26.0-34.0); MCHC 32.8 g/dL (31.0-37.0); MCV 87.3 fL (80.0-100.0); MEAN PLATELET VOLUME 10.2 fL (7.4-10.4); PLATELET COUNT 177 10x3/uL (130-400); RBC 2.83 10x6/uL (4.00-5.40); RDW 13.9 % (11.5-14.5); WBC 10.5 10x3/uL (4.8-10.8)
[2018-10-01 06:53] LABS: ALBUMIN 2.1 g/dL (3.4-5.0); BILIRUBIN - TOTAL 1.08 mg/dL (0.2-1.3); CALCIUM 7.9 mg/dL (8.5-10.1); CARBON DIOXIDE 23.7 mmol/L (21.0-32.0); CREATININE - SERUM 0.9 mg/dL (0.6-1.3); MAGNESIUM - SERUM 1.9 mg/dL (1.8-2.4); POTASSIUM - SERUM 3.7 mmol/L (3.5-5.1); PROTEIN - SERUM 5.5 g/dL (6.4-8.2)
[2018-10-01 09:00] VITALS: BP 151/68
--- NOTE | 2018-10-01 12:58 | NUR ---
BLOOD STARTED PER PROTOCOL TO LEFT FOREARM. REACTIONS REVIEWED WITH PT TO WATCH FOR. WILL MONITOR
[2018-10-01 13:34] VITALS: BP 156/75
[2018-10-01 16:00] VITALS: BP 204/99
--- NOTE | 2018-10-01 18:31 | NUR ---
PATIENT IN BED RECEIVED BLOOD AT 1330 AND TOLERATED WELL. IV NS INFUSING AT 74 VIA LEFT FOREARM. SHOULDER IMMOBILIZER INTACT AT ALL TIMES. C/L WITHIN REACH AND SR'S UP X'S 2 AND BED IN LOWEST POSITION.
[2018-10-01 21:13] VITALS: BP 167/61
[2018-10-02 01:32] VITALS: BP 196/86
--- NOTE | 2018-10-02 01:55 | NUR ---
RESTING QUITELY IN BED RESP UNLABORED NO APPARENT DISTRESS CALL LIGHT IN REACH
[2018-10-02 05:23] VITALS: BP 185/85
[2018-10-02 06:08] LABS: BASOPHILS 0.1 % (0-2); EOSINOPHILS 1.1 % (0-7); HEMATOCRIT 29.5 % (36.0-48.0); HEMOGLOBIN 9.7 g/dL (12-16); IMMATURE GRANULOCYTES 0.3 % (0-5); LYMPHOCYTES 9.8 % (15-50); MCH 28.6 pg (26.0-34.0); MCHC 32.9 g/dL (31.0-37.0); MEAN PLATELET VOLUME 10.3 fL (7.4-10.4); MONOCYTES 10.9 % (2-11); NEUTROPHILS 77.8 % (40-80); PLATELET COUNT 198 10x3/uL (130-400); RBC 3.39 10x6/uL (4.00-5.40); RDW 14.2 % (11.5-14.5)
[2018-10-02 06:27] LABS: WBC 13.2 10x3/uL (4.8-10.8)
[2018-10-02 06:41] LABS: ALBUMIN 2.3 g/dL (3.4-5.0); ANION GAP 15.5 mmol/L (8-16); BILIRUBIN - TOTAL 1.51 mg/dL (0.2-1.3); CALCIUM 8.1 mg/dL (8.5-10.1); CREATININE - SERUM 0.8 mg/dL (0.6-1.3); MAGNESIUM - SERUM 1.9 mg/dL (1.8-2.4); POTASSIUM - SERUM 3.5 mmol/L (3.5-5.1); PROTEIN - SERUM 6.1 g/dL (6.4-8.2)
--- NOTE | 2018-10-02 07:15 | NUR ---
REC'D IN BED AWAKE AND ALERT. RESP EVEN AND UNLABORED WITH NO DISTRESS NOTED. HAS SLING INTACT TO RIGHT ARM. DENIES ANY PAIN OR DISCOMFORT AT THIS TIME. ASSESMENT COMPLETED. C/L IN REACH AT BEDSIDE.
[2018-10-02 08:07] VITALS: BP 186/87
--- NOTE | 2018-10-02 09:20 | MORECARE ---
CASE MANAGEMENT DISCHARGE SUMMARY PATIENT: ARINA HADLEY UNIT: [id number] ADM DATE: 09/27/18 AGE: 82 : 37 SEX: F ROOM/BED: D.2229 AUTHOR: ISMAEL FLOREZ PHYSICIAN: REFERRING PHYSICIAN: JUANA CORONA MD DATE OF SERVICE: 10/02/18 Discharge Plan Patient Name: ARINA HADLEY [facility] [facility] 1935 Planned Disposition: Nursing Facility NICO Cert Anticipated Discharge Date: Discharge Date: Expected LOS: Initial Reviewer: [email or web address] Initial Review Date: 10/02/2018 Generated: 10/02/18 10:20 am Patient Name: ARINA HADLEY Page [phone] at 0920 All edits/amendments must be made on the electronic document DICTATION DATE: 10/02/18919 DIABETES TERRITORY MANAGER: JOSE GUADALUPE 10/02/18919 RPT#: [id number] DC DATE: STATUS: ADM IN [facility] [address] [place] [address] END OF REPORT
--- NOTE | 2018-10-02 09:27 | MORECARE ---
CASE MANAGEMENT DISCHARGE SUMMARY PATIENT: ARINA HADLEY UNIT: [id number] ADM DATE: 09/27/18 AGE: 82 : 37 SEX: F ROOM/BED: D.2229 AUTHOR: ISMAEL FLOREZ PHYSICIAN: REFERRING PHYSICIAN: JUANA CORONA MD DATE OF SERVICE: 10/02/18 Discharge Plan Patient Name: ARINA HADLEY [facility] [facility] 1935 Planned Disposition: Nursing Facility NICO Cert Anticipated Discharge Date: Discharge Date: Expected LOS: Initial Reviewer: [email or web address] Initial Review Date: 10/02/2018 Generated: 10/02/18 10:27 am DCPIA - Discharge Planning Initial Assessment Updated by [email or web address]: Dee Brush on 10/02/18 9:23 am * Is the patient Alert and Oriented? Yes * How many steps to enter\exit or inside your home? 0/0 * Preadmission Environment Nursing Home Shelter * Facility Name [facility] * ADLs Partial Dependent * Partial ADLs (Assistance needed) Ambulation Bathing Dressing Medication Management Toileting Transfers * Other Equipment DME provided by [facility] * List name and contact numbers for known caregivers / representatives who currently or will assist patient after discharge: Armani Nguyễn (POA) - [phone] Jarret Nguyễn (son) - [phone] * Verbal permission to speak to the caregivers and representatives has been obtained from the patient. Yes * Community resources currently utilized None * Additional services required to return to the preadmission environment? No * Can the patient safely return to the preadmission environment? Yes * Has this patient been hospitalized within the prior 30 days at any hospital? No Last DP export: 10/02/18 8:20 a Patient Name: ARINA HADLEY Page [phone] at 0927 All edits/amendments must be made on the electronic document DICTATION DATE: 10/02/18925 [employer]: JOSE GUADALUPE 10/02/18925 RPT#: [id number] DC DATE: STATUS: ADM IN [facility] [address] [place] [address] END OF REPORT
--- NOTE | 2018-10-02 09:34 | MORECARE ---
CASE MANAGEMENT DISCHARGE SUMMARY PATIENT: ARINA HADLEY UNIT: [id number] ADM DATE: 09/27/18 AGE: 82 : 37 SEX: F ROOM/BED: D.2229 AUTHOR: VIKKI,DOC PHYSICIAN: REFERRING PHYSICIAN: JUANA CORONA MD DATE OF SERVICE: 10/02/18 Discharge Plan Patient Name: ARINA HADLEY Facility: [facility]:[place] : 1935 Planned Disposition: Nursing Facility [facility] Cert Anticipated Discharge Date: Discharge Date: Expected LOS: Initial Reviewer: [email or web address] Initial Review Date: 10/02/2018 Generated: 10/02/18 10:34 am Comments DCP- Discharge Planning Updated by [email or web address]: Dee Brush on 10/02/18 8:[address] Patient Name: ARINA HADLEY Admission Status: ER Accout number: [id number] Admission Date: 09-27-2018 : 1935 Admission Diagnosis:PAIN IN RIGHT SHOULDER Attending: CJ, Current LOS: 5 Anticipated DC Date: Planned Disposition: Nursing Facility [facility] Cert Primary Insurance: MEDICARE A & B Discharge Planning Comments: CM met with patient to discuss discharge planning, she is alone in the room. States she lives at [facility]. States she is dependent on staff for her care. States she is in a wheelchair at [facility]. Her plan is to return to [facility] on discharge. I spoke with Anny at [facility] and they will accept her back when ready for discharge. Spoke with patient's son Armani, he is in agreement to discharge. CM will continue to follow and assist with discharge planning/needs. Brake Drum Molder: Dee Brush DCPIA - Discharge Planning Initial Assessment Updated by [email or web address]: Dee Brush on 10/02/18 9:23 am * Is the patient Alert and Oriented? Yes * How many steps to enter\exit or inside your home? 0/0 * Preadmission Environment Adobe Flex Developer M[employer] * Facility Name [facility] * ADLs Partial Dependent * Partial ADLs (Assistance needed) Ambulation Bathing Dressing Medication Management Toileting Transfers * Other Equipment DME provided by [facility] * List name and contact numbers for known caregivers / representatives who currently or will assist patient after discharge: Armani Nguyễn (POA) [phone] Jarret Nguyễn (son) - [phone] * Verbal permission to speak to the caregivers and representatives has been obtained from the patient. Yes * Community resources currently utilized None * Additional services required to return to the preadmission environment? No * Can the patient safely return to the preadmission environment? Yes * Has this patient been hospitalized within the prior 30 days at any hospital? No Coverage Notice Reviewer: [id number] Aspen Brush Notice Issued Date-Time: 10/02/2018 9:29 Notice Type: IM Discharge Notice Notice Delivered To: Family Member Relationship to Patient: Son Grain Receiver Name: Armani Nguyễn Delivery Method: PHONE - Phone Vicenta Days: Prior Verbal Notification: Recipient Understood Notice: Yes Recipient Signature: Med Rec Note Co-signed by Attending: Coverage Notice Comment: IMM explained to son over phone, agrees with discharge, copy left at patient bedside. Last DP export: 10/02/18 8:27 a Patient Name: ARINA HADLEY Page [phone] at 0934 All edits/amendments must be made on the electronic document DICTATION DATE: 10/02/18932 GERICARE AIDE TEACHER: JOSE GUADALUPE 10/02/18932 RPT#: [id number] DC DATE: STATUS: ADM IN [facility] [address] [place] [address] END OF REPORT
[2018-10-02] MEDS ORDERED: MIRALAX17 GM PO (12:13)
[2018-10-02 12:39] VITALS: BP 188/88
[2018-10-02] MEDS ORDERED: AMIODARONE HCL200 MG PO (13:55)
--- NOTE | 2018-10-02 14:03 | MORECARE ---
CASE MANAGEMENT DISCHARGE SUMMARY PATIENT: ARINA HADLEY UNIT: [id number] ADM DATE: 09/27/18 AGE: 82 : 37 SEX: F ROOM/BED: D.2229 AUTHOR: VIKKI,DOC PHYSICIAN: REFERRING PHYSICIAN: JUANA CORONA MD DATE OF SERVICE: 10/02/18 Discharge Plan Patient Name: ARINA HADLEY Facility: [facility]:[place] : 1935 Planned Disposition: Nursing Facility [facility] Cert Anticipated Discharge Date: Discharge Date: Expected LOS: Initial Reviewer: [id number] Initial Review Date: 10/02/2018 Generated: 10/02/18 3:03 pm Comments DCP- Discharge Planning Updated by [id number]: Dee Brush on 10/02/18 1:[address] Discharging to a skilled (Medicare) bed at [facility] per Kallie. DC orders/MAR faxed. The van is here now for picking belt operator. respiratory coordinator informed. Family at bedside. DCP- Discharge Planning Updated by [email or web address]: Dee Brush on 10/02/18 8:[address] Patient Name: ARINA HADLEY Admission Status: ER Accout number: [id number] Admission Date: 09-27-2018 : 1935 Admission Diagnosis:PAIN IN RIGHT SHOULDER Attending: CJ, Current LOS: 5 Anticipated DC Date: Planned Disposition: Nursing Facility [facility] Cert Primary Insurance: MEDICARE A & B Discharge Planning Comments: CM met with patient to discuss discharge planning, she is alone in the room. States she lives at [facility]. States she is dependent on staff for her care. States she is in a wheelchair at [facility]. Her plan is to return to [facility] on discharge. I spoke with Anny at [facility] and they will accept her back when ready for discharge. Spoke with patient's son Armani, he is in agreement to discharge. CM will continue to follow and assist with discharge planning/needs. Svp Digital Sales Food & Cooking: Dee Brush DCPIA - Discharge Planning Initial Assessment Updated by [id number]: Dee Brush on 10/02/18 9:23 am * Is the patient Alert and Oriented? Yes * How many steps to enter\exit or inside your home? 0/0 * Preadmission Environment Piece Jobber M[employer] * Facility Name [facility] * ADLs Partial Dependent * Partial ADLs (Assistance needed) Ambulation Bathing Dressing Medication Management Toileting Transfers * Other Equipment DME provided by [facility] * List name and contact numbers for known caregivers / representatives who currently or will assist patient after discharge: Armani Nguyễn (POA) [phone] Jarret Nguyễn (son) - [phone] * Verbal permission to speak to the caregivers and representatives has been obtained from the patient. Yes * Community resources currently utilized None * Additional services required to return to the preadmission environment? No * Can the patient safely return to the preadmission environment? Yes * Has this patient been hospitalized within the prior 30 days at any hospital? No External Providers External Provider: [facility] Next Contact Date: Service Request Date: Service Type: Resolution: Reviewer: Comments: Coverage Notice Reviewer: [id number] Aspen Brush Notice Issued Date-Time: 10/02/2018 9:29 Notice Type: IM Discharge Notice Notice Delivered To: Family Member Relationship to Patient: Son Trim Die Maker Name: Armani Nguyễn Delivery Method: PHONE - Phone Vicenta Days: Prior Verbal Notification: Recipient Understood Notice: Yes Recipient Signature: Med Rec Note Co-signed by Attending: Coverage Notice Comment: IMM explained to son over phone, agrees with discharge, copy left at patient bedside. Last DP export: 10/02/18 8:34 a Patient Name: ARINA HADLEY Page [phone] at 1403 All edits/amendments must be made on the electronic document DICTATION DATE: 10/02/18 1403 STATOR PLATE WASHER: JOSE GUADALUPE 10/02/18 1403 RPT#: [id number] DC DATE: STATUS: ADM IN [facility] [address] [place] [address] END OF REPORT
--- NOTE | 2018-10-02 14:33 | NUR ---
PT DC BACK TO [facility] AT THIS TIME VIA FACILITY VAN ACCOMPAINED BY THEIR STAFF. NO C/O NOTED OR VOICED. ASSISTANCE GIVEN WITH TRANSFER. PT UNABLE TO SIGN PAPER WORK SO WAS SIGNED BY [facility] STAFF. IN STABLE CONDITION UPON DEPARTURE.
--- NOTE | 2018-10-03 07:13 | MORECARE ---
CASE MANAGEMENT DISCHARGE SUMMARY PATIENT: ARINA HADLEY UNIT: [id number] ADM DATE: 09/27/18 AGE: 82 : 37 SEX: F ROOM/BED: D.2229 AUTHOR: VIKKI,DOC PHYSICIAN: REFERRING PHYSICIAN: JUANA CORONA MD DATE OF SERVICE: 10/03/18 Discharge Plan Patient Name: ARINA HADLEY Facility: [facility]:[place] : 1935 Planned Disposition: Nursing Facility [facility] Cert Anticipated Discharge Date: Discharge Date: 10/02/2018 Expected LOS: 0 Initial Reviewer: [email or web address] Initial Review Date: 10/02/2018 Generated: 10/03/18 8:13 am Comments DCP- Discharge Planning Updated by [id number]: Dee Brush on 10/02/18 1:[address] Discharging to a skilled (Medicare) bed at [facility] per Kallie. DC orders/MAR faxed. The van is here now for garbage pick up man. home school coordinator informed. Family at bedside. DCP- Discharge Planning Updated by [email or web address]: Dee Brush on 10/02/18 8:[address] Patient Name: ARINA HALDEY Admission Status: ER Accout number: [id number] Admission Date: 09-27-2018 : 1935 Admission Diagnosis:PAIN IN RIGHT SHOULDER Attending: CJ, Current LOS: 5 Anticipated DC Date: Planned Disposition: Nursing Facility [facility] Cert Primary Insurance: MEDICARE A & B Discharge Planning Comments: CM met with patient to discuss discharge planning, she is alone in the room. States she lives at [facility]. States she is dependent on staff for her care. States she is in a wheelchair at [facility]. Her plan is to return to [facility] on discharge. I spoke with Anny at [facility] and they will accept her back when ready for discharge. Spoke with patient's son Armani, he is in agreement to discharge. CM will continue to follow and assist with discharge planning/needs. Tubing Assembler: Dee Brush DCPIA - Discharge Planning Initial Assessment Updated by [email or web address]: Dee Brush on 10/02/18 9:23 am * Is the patient Alert and Oriented? Yes * How many steps to enter\exit or inside your home? 0/0 * Preadmission Environment [employer] * Facility Name [facility] * ADLs Partial Dependent * Partial ADLs (Assistance needed) Ambulation Bathing Dressing Medication Management Toileting Transfers * Other Equipment DME provided by [facility] * List name and contact numbers for known caregivers / representatives who currently or will assist patient after discharge: Armani Nguyễn (POA) - [phone] Jarret Nguyễn (son) - [phone] * Verbal permission to speak to the caregivers and representatives has been obtained from the patient. Yes * Community resources currently utilized None * Additional services required to return to the preadmission environment? No * Can the patient safely return to the preadmission environment? Yes * Has this patient been hospitalized within the prior 30 days at any hospital? No Coverage Notice Reviewer: [id number] Aspen Brush Notice Issued Date-Time: 10/02/2018 9:29 Notice Type: IM Discharge Notice Notice Delivered To: Family Member Relationship to Patient: Son Environmental Attorney Name: Armani Nguyễn Delivery Method: PHONE - Phone Vicenta Days: Prior Verbal Notification: Recipient Understood Notice: Yes Recipient Signature: Med Rec Note Co-signed by Attending: Coverage Notice Comment: IMM explained to son over phone, agrees with discharge, copy left at patient bedside. Last DP export: 10/02/18 1:03 p Patient Name: ARINA HADLEY Page [phone] at 0713 All edits/amendments must be made on the electronic document DICTATION DATE: 10/03/18712 COFFEE MACHINE TECHNICIAN: JOSE GUADALUPE 10/03/18712 RPT#: [id number] DC DATE:10/02/18 STATUS: DIS IN [facility] [address] [place] [address] END OF REPORT
== END 2018-10-02 14:37 | DRG 483 ==
LOC: D.ER 08:36 → D.M2 10:45 → D.MS 10:45 → D.EDHOLD 10:45 → D.M2 15:04 → D.CVICU 09-29 12:45 → D.MS 09-30 15:27
PROVIDERS: Family Medicine; Orthopaedic Surgery; ADMIT Family Medicine
PROC: 0RRJ0J6 Replacement of Right Shoulder Joint with Synthetic Substitute, Humeral Surface, Open Approach (ICD-10-PCS; principal; 2018-09-29 11:00)
DX: S42.201A Unspecified fracture of upper end of right humerus, initial encounter for closed fracture (principal); I48.92 Unspecified atrial flutter; W19.XXXA Unspecified fall, initial encounter; E03.9 Hypothyroidism, unspecified; I10 Essential (primary) hypertension; I25.10 Atherosclerotic heart disease of native coronary artery without angina pectoris; I48.2 Chronic atrial fibrillation; K21.9 Gastro-esophageal reflux disease without esophagitis; R91.8 Other nonspecific abnormal finding of lung field

== ENCOUNTER → 2019-01-24 10:47 | Outpatient (CLI) | payer MEDICARE, OTHER ==
[2018-09-28 10:37] VITALS: BMI 22.8
[~2019-01-24 10:47] MED LIST changes: +AMIODARONE HCL200 MG PO; +MIRALAX17 GM PO; +SYNTHROID75 MCG PO
[2019-01-24 11:51] LABS: BASOPHILS 0.2 % (0-2); EOSINOPHILS 0 % (0-7); HEMATOCRIT 40.2 % (36.0-48.0); HEMOGLOBIN 13.3 g/dL (12-16); IMMATURE GRANULOCYTES 0.2 % (0-5); LYMPHOCYTES 10.3 % (15-50); MCH 29.4 pg (26.0-34.0); MCHC 33.1 g/dL (31.0-37.0); MCV 88.9 fL (80.0-100.0); MONOCYTES 7.5 % (2-11); NEUTROPHILS 81.8 % (40-80); PLATELET COUNT 237 10x3/uL (130-400); RBC 4.52 10x6/uL (4.00-5.40); RDW 14.5 % (11.5-14.5)
--- NOTE | 2019-01-24 12:10 | NUR ---
1150-CBC RESULTS CALLED TO MANSOOR MARROQUIN AT [facility]. ORDERS RECD TO CANCEL TRANSFUSION AND DISCHARGE PT. THEY WILL SEND TRANSPORTATION.
== END | disposition home or self-care (01) ==
LOC: D.OPS 10:47
PROVIDERS: ATTEND Family Medicine
DX: D64.9 Anemia, unspecified (principal)